=== PATIENT | male | born 1950 | race Two or more races ===

== ENCOUNTER 2019-05-25 22:13 | Inpatient (IN) | payer SELFPAY ==
[~2019-05-25] VITALS: Ht 180.3 cm; Wt 108.0 kg
[2019-05-25] MEDS ORDERED: SODIUM CHLORIDE 0.9% 1,000 ML IV ONE (22:50)
[2019-05-25] MEDS ORDERED: DIPHENOXYLATE/ATROPINE 2.5/0.025MG TABLET PO ONE (23:00)
[2019-05-25 23:53] LABS: BASOPHILS % 0.2 % (0.0-2.0); EOSINOPHILS % 2.7 % (0.0-5.0); HEMATOCRIT. 45.8 % (42.0-52.0); HEMOGLOBIN. 15.4 g/dL (14.0-18.0); LYMPHOCYTES % 23.4 % (20.0-50.0); MEAN CORPUSCULAR HEMOGLOBIN 29.9 pg (28.0-32.0); MEAN CORPUSCULAR VOLUME 88.8 fL (80.0-94.0); MEAN PLATELET VOLUME 7.5 fl (7.4-10.4); NEUTROPHILS % 65.7 % (40.0-76.0); PLATELET 273 x1000/uL (130-400); RED BLOOD CELL COUNT 5.16 mill/uL (4.7-6.1); RED CELL DISTRIBUTION WIDTH 14.8 % (11.6-14.6)
[2019-05-25 23:54] LABS: CHLORIDE 105 mEq/L (98-107)
[2019-05-26] MEDS ORDERED: SODIUM CHLORIDE 0.9% 1,000 ML IV SCH ×3 (00:42→12:30)
[2019-05-26] MEDS ORDERED: ACETAMINOPHEN 325MG TABLET PO PRN (03:30)
[2019-05-26] MEDS ORDERED: MAGNESIUM/ALUMINUM HYDROXIDE/SIMETHICONE 30ML UDC PO PRN (03:30)
[2019-05-26] MEDS ORDERED: HYDROCODONE/ACETAMINOPHEN 5/325MG TABLET PO PRN (03:30)
[2019-05-26] MEDS ORDERED: CLONIDINE 0.1MG TABLET PO PRN (03:30)
[2019-05-26] MEDS ORDERED: ONDANSETRON HCL 4MG/2ML INJ IV PRN (03:30)
[2019-05-26] MEDS ORDERED: LOPERAMIDE HCL 2MG CAPSULE PO PRN (03:30)
[2019-05-26] MEDS ORDERED: SODIUM CHLORIDE 0.9% 1,000 ML IV ONE (04:21)
[2019-05-26 09:50] VITALS: BP 107/69
[2019-05-26 10:00] VITALS: BP 107/69
[2019-05-26] MEDS: AMLODIPINE 10MG TABLET PO SCH (10:00)
[2019-05-26 12:00] VITALS: BP 98/64
[2019-05-26] MEDS ORDERED: OMEP20CA5 MT (12:03)
[2019-05-26] MEDS ORDERED: LISI-604 MT (12:04)
[2019-05-26] MEDS: ENOXAPARIN 40MG/0.4ML SYR SUBCUT SCH (12:55)
[2019-05-26] MEDS: CITRIC ACID/SODIUM CITRATE SOLN 15ML UDC PO SCH ×2 (12:56→17:39)
[2019-05-26 12:59] LABS: BG BASE EXCESS -11.6 mmol/L (-2.0-2.0); BG CARBOXYHEMOGLOBIN 0.9 % (0.5-1.5); BG DEOXYHEMOGLOBIN 3.8 % (0.0-5.0); BG FRACTION INSPIRED OXYGEN 21; BG HCO3 ACT 14.1 mmol/L (22.0-26.0); BG METHEMOGLOBIN 0.3 % (0.0-1.5); BG OXYGEN SATURATION 96.2 % (92.0-98.5); BG PCO2 32.1 mmHg (35.0-45.0); BG PH 7.262 (7.350-7.450); BG PO2 87.9 mmHg (75.0-100.0); BG SAMPLE SITE RIGHT RADIAL; BG TOTAL HEMOGLOBIN 14.5 g/dL (12.0-18.0); BG VENT MODE ROOM AIR
[2019-05-26 16:00] VITALS: BP 101/62
[2019-05-26 20:00] VITALS: BP 106/63
[2019-05-26 21:39] LABS: CLARITY URINE CLEAR (CLEAR); COLOR URINE YELLOW (YELLOW); KETONES URINE NEGATIVE (NEGATIVE); LEUKOCYTE ESTERASE URINE NEGATIVE (NEGATIVE); NITRITE URINE NEGATIVE (NEGATIVE); OCCULT BLOOD URINE TRACE (NEGATIVE); PH URINE 5.5 (4.5-8.0); PROTEIN URINE TRACE (NEGATIVE); SPECIFIC GRAVITY URINE 1.012 (1.005-1.030); UROBILINOGEN URINE 0.2 E.U./dL (0.2-1.0)
[2019-05-26 21:46] LABS: SODIUM URINE RANDOM 15 mEq/L
[2019-05-27] VITALS: BP 90/52
[2019-05-27 04:00] VITALS: BP 113/74
[2019-05-27 07:47] LABS: BASOPHILS % 0.2 % (0.0-2.0); EOSINOPHILS % 3.5 % (0.0-5.0); HEMATOCRIT. 40.3 % (42.0-52.0); HEMOGLOBIN. 13.6 g/dL (14.0-18.0); LYMPHOCYTES % 21.5 % (20.0-50.0); MEAN CORPUSCULAR VOLUME 88.8 fL (80.0-94.0); MEAN PLATELET VOLUME 7.4 fl (7.4-10.4); MONOCYTES % 11.1 % (2.0-8.0); NEUTROPHILS % 63.7 % (40.0-76.0); PLATELET 222 x1000/uL (130-400); RED BLOOD CELL COUNT 4.54 mill/uL (4.7-6.1); RED CELL DISTRIBUTION WIDTH 14.9 % (11.6-14.6)
[2019-05-27 07:55] VITALS: BP 126/79
[2019-05-27 07:59] LABS: CHLORIDE 116 mEq/L (98-107)
[2019-05-27 08:10] LABS: PHOSPHORUS 2.4 mg/dL (2.5-4.9)
[2019-05-27 08:13] LABS: CREATINE KINASE 267 IU/L (39-308)
[2019-05-27] MEDS: AMLODIPINE 10MG TABLET PO SCH (08:53)
[2019-05-27] MEDS: CITRIC ACID/SODIUM CITRATE SOLN 30ML UDC PO SCH ×3 (08:56→16:58)
[2019-05-27] MEDS ORDERED: MAGNESIUM 2 G PREMIX 50 ML IV SCH (10:00)
[2019-05-27] MEDS: ENOXAPARIN 40MG/0.4ML SYR SUBCUT SCH (10:41)
[2019-05-27] MEDS ORDERED: SODIUM PHOS,M-BASIC-D-BASIC 15 MM in DEXT 5% WATER 245 ML IV SCH (11:00)
[2019-05-27 12:00] VITALS: BP 126/66
[2019-05-27 12:51] VITALS: BP 126/66
== END 2019-05-27 17:38 | disposition home or self-care (01) | DRG 469 ==
LOC: ER 22:13 → 7WST 05-26 00:43 → EDBEDREQ 05-26 00:46 → EDBEDREQTM 05-26 00:46 → ENRESERV 05-26 07:28
PROVIDERS: ADMIT Hospitalist; ATTEND Hospitalist
DX: N17.0 Acute kidney failure with tubular necrosis (principal); E87.2 Acidosis; I95.9 Hypotension, unspecified; E87.1 Hypo-osmolality and hyponatremia; E86.1 Hypovolemia; I10 Essential (primary) hypertension; R19.7 Diarrhea, unspecified; Z82.49 Family history of ischemic heart disease and other diseases of the circulatory system
CPT/HCPCS: 36415; 36600; 71045; 76770; 80048; 81003; 82375; 82533; 82550; 82805; 83036; 83605; 83735; 83935; 84100; 84300; 84443; 87493; 93970; 99291; J1650; J3475; J3490; J7030; J7060